=== PATIENT | male | born 1950 | race Caucasian/White ===

== ENCOUNTER 2017-03-18 15:35 | Emergency (ER) | payer MEDICARE ==
[2017-03-18 18:28] LABS: BASOPHILS 0.1 % (0-2); EOSINOPHILS 0.1 % (0-7); HEMATOCRIT 41.2 % (42.0-54.0); HEMOGLOBIN 13.5 g/dL (13.5-17.5); IMMATURE GRANULOCYTES 0.3 % (0-5); LYMPHOCYTES 7.7 % (15-50); MCH 31.8 pg (26.0-34.0); MCHC 32.8 g/dL (31.0-37.0); MCV 97.2 fL (80.0-100.0); MEAN PLATELET VOLUME 11.3 fL (7.4-10.4); MONOCYTES 9.7 % (2-11); NEUTROPHILS 82.1 % (40-80); PLATELET COUNT 136 10x3/uL (130-400); RBC 4.24 10x6/uL (4.20-6.10); RDW 13.3 % (11.5-14.5); WBC 7.4 10x3/uL (4.8-10.8)
[2017-03-18 18:42] LABS: ALBUMIN 3.3 g/dL (3.4-5.0); ANION GAP 9.7 mmol/L (8-16); BILIRUBIN - TOTAL 0.74 mg/dL (0.2-1.3); CALCIUM 8.8 mg/dL (8.5-10.1); CARBON DIOXIDE 27.2 mmol/L (21.0-32.0); CREATININE - SERUM 1.1 mg/dL (0.6-1.3); POTASSIUM - SERUM 3.9 mmol/L (3.5-5.1); PROTEIN - SERUM 6.8 g/dL (6.4-8.2)
== END 2017-03-18 21:34 | disposition home or self-care (01) ==
LOC: D.ER 15:35
PROVIDERS: Physician Assistant
DX: R50.9 Fever, unspecified (principal); R53.81 Other malaise